=== PATIENT | female | born 1995 | race Caucasian/White ===

== ENCOUNTER 2016-11-06 19:22 | Emergency (ER) | payer OTHER ==
[2016-11-06 20:47] LABS: ABSOLUTE NEUTROPHIL COUNT 3.8 K/mm3 (1.8-7.7); BASO # 0.1 K/mm3 (0.0-0.2); BASO % 0.8 % (0.2-1.0); EOS # 0.1 (0.0-0.5); EOS % 1.3 % (0.9-2.9); HEMATOCRIT 39.9 % (37.0-47.0); HEMOGLOBIN 13.6 gm/l (12.0-16.0); IMM NEUT% 0.2 % (0-1); LYMPH % 31.7 % (15-45); MEAN CELL VOLUME 84.5 fl (81.0-99.0); MEAN CORPUSCULAR HEMOGLOBIN 28.8 pg (27.0-31.0); MEAN CORPUSCULAR HGB CONC 34.1 g/dl (33.0-37.0); MEAN PLATELET VOLUME 11.1 fl (7.4-10.4); MONO # 0.4 (0.0-0.8); PLATELET COUNT 233 K/mm3 (130-400); RED CELL DISTRIBUTION WIDTH 11.9 % (11.5-14.5)
[2016-11-06 20:58] LABS: ALB/GLOB RATIO 1.4 (>1.0); ALBUMIN 4.3 gm/dL (3.5-5.7); CALCIUM 9.8 mg/dL (8.6-10.3)
[2016-11-06] MEDS ORDERED: SODIUM CHLORIDE 0.9% 1,000 ML ONE (20:59)
[2016-11-06 21:05] LABS: SPECIFIC GRAVITY 1.015 (1.001-1.030); URINE BILIRUBIN NEGATIVE (NEGATIVE); URINE BLOOD NEGATIVE (NEGATIVE); URINE GLUCOSE (UA) NEGATIVE (NEGATIVE); URINE LEUKOCYTE ESTERASE NEGATIVE (NEGATIVE); URINE NITRITE NEGATIVE (NEGATIVE); URINE PROTEIN NEGATIVE (NEGATIVE); URINE UROBILINOGEN NORMAL (0-1 mg/dl)
[2016-11-06 21:06] LABS: URINE APPEARANCE CLEAR; URINE COLOR YELLOW
[2016-11-06] MEDS ORDERED: HYDROMORPHONE HCL 0.5 MG/0.5 ML SYRINGE ONE (21:48)
== END 2016-11-06 21:57 | disposition home or self-care (01) ==
LOC: ED 19:22
DX: K52.9 Noninfective gastroenteritis and colitis, unspecified (principal)

== ENCOUNTER 2016-11-15 03:11 | Emergency (ER) | payer OTHER ==
[2016-11-15 03:57] LABS: URINE BILIRUBIN NEGATIVE (NEGATIVE); URINE BLOOD NEGATIVE (NEGATIVE); URINE GLUCOSE (UA) NEGATIVE (NEGATIVE); URINE LEUKOCYTE ESTERASE NEGATIVE (NEGATIVE); URINE NITRITE NEGATIVE (NEGATIVE); URINE PROTEIN NEGATIVE (NEGATIVE); URINE UROBILINOGEN NORMAL (0-1 mg/dl)
[2016-11-15 03:59] LABS: HCG,QUALITATIVE URINE NEGATIVE; URINE APPEARANCE CLEAR; URINE COLOR YELLOW
[2016-11-15] MEDS ORDERED: HYDROCODONE/ACETAMINOPHEN 5/325MG TABLET ONE (04:24)
[2016-11-15] MEDS ORDERED: IBUPROFEN 600 MG TABLET ONE (04:25)
--- NOTE | 2016-11-15 08:35 | RAD ---
EXAMINATION:LUMBAR SPINE ROUTINE 2 3 VWS HISTORY: Ground-level fall one day ago. Back pain. Initial encounter. COMPARISON: None Findings: Vertebral alignment:Normal Vertebral body height:Normal Intervertebral disc spaces:Normal Facets:Normal Adjacent soft tissues:Normal Sacrum and sacroiliac joints:Within normal limits IMPRESSION: Normal radiographic evaluation of the lumbar spine.
== END 2016-11-15 04:42 | disposition home or self-care (01) ==
LOC: ED 03:11
DX: S33.5XXA Sprain of ligaments of lumbar spine, initial encounter (principal); W18.30XA Fall on same level, unspecified, initial encounter; Y93.01 Activity, walking, marching and hiking; Y92.838 Other recreation area as the place of occurrence of the external cause
CPT/HCPCS: 81025; 81003; 72100; 99283 ×2; 51798; A9270 ×2